=== PATIENT | female | born 1945 | race American Indian/Alaskan Native ===

== ENCOUNTER 2017-02-18 13:08 | Outpatient (CLI) | payer OTHER, MEDICARE ==
--- NOTE | 2017-02-18 16:20 | Mammography Report ---
LEFT DIGITAL SCREENING MAMMOGRAM with CAD: 02/18/17 CLINICAL: Routine screening.Breast cancer survivor status post right mastectomy. COMPARISON:None available. However, a prior mammogram was apparently done at [facility]. FINDINGS: The breasts is heterogeneously dense, which may obscure small masses. A retroareolar asymmetry on the MLO view requires comparison with the prior mammogram. No architectural distortion or suspicious calcifications. IMPRESSION: Retroareolar asymmetry requiring further evaluation. BI-RADS CATEGORY: 0 -- Additional Evaluation Required RECOMMENDATION: Comparison with a previous mammogram. We will attempt to obtain a prior mammogram from [facility]. If we do not obtain a prior mammogram for comparison within 30 days, a revised report will be issued recommending a recall for additional imaging. Please be advised that the patient should not schedule an appointment for return until adequate time (at least 2 weeks) has passed for us to obtain the prior mammogram. ACR BI-RADS MAMMOGRAPHIC CODES: 0 = Needs additional imaging evaluation; 1 = Negative; 2 = Benign; 3 = Probably benign; 4 = Suspicious; 5 = Malignant; 6 = Known biopsy-proven malignancy COMMENT: 1. Dense breast tissue, i.e., adenosis, fibrocystic changes, etc., may obscure an underlying neoplasm. 2. Approximately 10% of cancers are not detected with mammography. 3. A negative mammography report should not delay biopsy if a clinically suspicious mass is present. COMMENT: Patient follow-up letters are generated via our [employer] ([employer]) application.
== END 2017-02-18 13:09 | disposition home or self-care (01) ==
LOC: SPVWC 13:08
PROVIDERS: ATTEND Family Medicine
DX: Z12.31 Encounter for screening mammogram for malignant neoplasm of breast (principal)
CPT/HCPCS: G0202-52